=== PATIENT | male | born 1935 | race Caucasian/White ===

== ENCOUNTER 2017-12-27 11:14 | Emergency (ER) | payer OTHER ==
[~2017-12-27] VITALS: Ht 172.7 cm; Wt 68.0 kg
[~2017-12-27 11:14] MED LIST: ASA81 MG PO; BUSPIRONE HCL5 GM PO; COZAAR50 MG; LANTUS100 U/ML; NAMENDA10 MG PO; NOVOLOG MIX 70/33 ML; SEROQUEL50 MG PO; TOPROL XL50 M1 PO; ZOCOR40 MG PO; ZOLOFT100 MG PO
[2017-12-27] MEDS ORDERED: NEURONTIN300 MG (11:46)
[2017-12-27] MEDS ORDERED: BENADRYL25 MG (11:47)
[2017-12-27] MEDS ORDERED: TESSALON PERLE100 M1 (11:47)
== END 2017-12-27 18:04 | disposition home or self-care (01) ==
LOC: ER 11:14
DX: R11.11 Vomiting without nausea (principal); N39.0 Urinary tract infection, site not specified; E11.65 Type 2 diabetes mellitus with hyperglycemia

== ENCOUNTER 2018-09-17 11:00 | Emergency (ER) | payer OTHER ==
[~2018-09-17] VITALS: Ht 152.4 cm; Wt 81.6 kg
[~2018-09-17 11:00] MED LIST changes: +BENADRYL25 MG; +NEURONTIN300 MG; +TESSALON PERLE100 M1
[2018-09-17] MEDS ORDERED: COZAAR25 MG (11:08)
[2018-09-17] MEDS ORDERED: TAMS0.4C PO (11:08)
[2018-09-17] MEDS ORDERED: NEXIUM10 MG (11:08)
[2018-09-17] MEDS ORDERED: BUSPAR (11:09)
[2018-09-17] MEDS ORDERED: DULCOLAX5 MG (11:09)
[2018-09-17] MEDS ORDERED: PROBIOTIC1 EACH (11:10)
[2018-09-17] MEDS ORDERED: ZANTAC150 MG (11:10)
== END 2018-09-18 11:54 | disposition home or self-care (01) ==
LOC: ER 11:00
DX: N30.81 Other cystitis with hematuria (principal); R31.0 Gross hematuria; B37.41 Candidal cystitis and urethritis; G30.8 Other Alzheimer's disease; F02.80 Dementia in other diseases classified elsewhere, unspecified severity, without behavioral disturbance, psychotic disturbance, mood disturbance, and anxiety